=== PATIENT | female | born 1950 | race Caucasian/White ===

== ENCOUNTER → 2018-02-07 10:43 | Outpatient (CLI) | payer MEDICARE, BC, SELFPAY ==
--- NOTE | 2018-02-07 10:47 | US_ITS ---
STUDY: ULTRASOUND TRANSVAGINAL CLINICAL: Female, 67 years old. Postmenopausal bleeding TECHNIQUE: Transvaginal COMPARISON: None. FINDINGS: Normal uterine size measuring 5.3 x 2 x 2.4 cm in maximal craniocaudal dimension. There are no myometrial masses. Endometrium is not clearly identified. Pessary device is noted Nonvisualized ovaries. No adnexal masses. Polycystic ovary disease: No. IMPRESSION: Grossly unremarkable uterus. Nonvisualized endometrium. Pessary device is noted. Nonvisualized ovaries. Electronically Signed: Venancio Singh DO at 9:10 EDT Tel , Service support , STUDY: ULTRASOUND OF THE FEMALE PELVIS - COMPLETE REASON FOR EXAM: Female, 67 years old. Postmenopausal bleeding LMP: Unknown. TECHNIQUE: Transabdominal TECHNICAL QUALITY: Limited. Study is limited by bowel gas and by artifact from a vaginal pessary. COMPARISON: Transvaginal ultrasound, same date FINDINGS: The uterus is anteverted and is in a midline position. The uterus measures 6.7 x 3.3 x 2.6 cm. Normal uterine cervix. The endometrium measures 2.7 mm in thickness, and is hyperechoic. There is no demonstrated endometrial mass. There is no demonstrated myometrial mass. I.U.D. - The patient does not have an I.U.D. The right ovary is visualized. The right ovary measures 2 x 1.5 x 1.7 cm. There is no right ovarian cyst or ovarian mass. There is no visualized right adnexal mass or complex lesion. There is normal arterial and normal venous vascularity. The left ovary is non-visualized. There is no fluid in the cul-de-sac. The pre void volume of the bladder was 225 ml. Polycystic ovary disease: No. US/Pelvic (Non ) IMPRESSION: Study is limited by bowel gas and by the presence of a vaginal pessary. Unremarkable uterus and right ovary. No endometrial thickening. Electronically Signed: Martin Marcus DO at 15:14 EDT Tel , Service support ,
--- NOTE | 2018-02-07 11:51 | US_ITS ---
STUDY: ULTRASOUND TRANSVAGINAL CLINICAL: Female, 67 years old. Postmenopausal bleeding TECHNIQUE: Transvaginal COMPARISON: None. FINDINGS: Normal uterine size measuring 5.3 x 2 x 2.4 cm in maximal craniocaudal dimension. There are no myometrial masses. Endometrium is not clearly identified. Pessary device is noted Nonvisualized ovaries. No adnexal masses. Polycystic ovary disease: No. IMPRESSION: Grossly unremarkable uterus. Nonvisualized endometrium. Pessary device is noted. Nonvisualized ovaries. Electronically Signed: Venancio Singh DO at 9:10 EDT Tel , Service support , STUDY: ULTRASOUND OF THE FEMALE PELVIS - COMPLETE REASON FOR EXAM: Female, 67 years old. Postmenopausal bleeding LMP: Unknown. TECHNIQUE: Transabdominal TECHNICAL QUALITY: Limited. Study is limited by bowel gas and by artifact from a vaginal pessary. COMPARISON: Transvaginal ultrasound, same date FINDINGS: The uterus is anteverted and is in a midline position. The uterus measures 6.7 x 3.3 x 2.6 cm. Normal uterine cervix. The endometrium measures 2.7 mm in thickness, and is hyperechoic. There is no demonstrated endometrial mass. There is no demonstrated myometrial mass. I.U.D. - The patient does not have an I.U.D. The right ovary is visualized. The right ovary measures 2 x 1.5 x 1.7 cm. There is no right ovarian cyst or ovarian mass. There is no visualized right adnexal mass or complex lesion. There is normal arterial and normal venous vascularity. The left ovary is non-visualized. There is no fluid in the cul-de-sac. The pre void volume of the bladder was 225 ml. Polycystic ovary disease: No. US/Transvaginal Non- IMPRESSION: Study is limited by bowel gas and by the presence of a vaginal pessary. Unremarkable uterus and right ovary. No endometrial thickening. Electronically Signed: Martin Marcus DO at 15:14 EDT Tel , Service support ,
[2018-02-14 11:59] LABS: HPV Reflexed? NOT INDICATED
== END ==
LOC: US 10:46 → LABSPEC 11:00
PROVIDERS: Visit Provider Obstetrics & Gynecology
DX: Z12.4 Encounter for screening for malignant neoplasm of cervix (principal); N95.0 Postmenopausal bleeding
CPT/HCPCS: 76830; 76856; 88175; G0145

== ENCOUNTER → 2018-04-04 09:46 | Outpatient (CLI) | payer MEDICARE, BC, SELFPAY ==
--- NOTE | 2018-04-04 09:47 | BI_ITS ---
MAMMOGRAPHY - BILATERAL SCREENING REASON FOR EXAM: Female, 67 years old. Routine annual screening examination. PERTINENT HISTORY: Mother with breast cancer. TECHNIQUE: Digital bilateral breast daniel (3D mammographic acquisition) in the CC and MLO projections. 2-D mediolateral oblique (MLO) and craniocaudad (CC) views of both breasts were obtained. CAD: Full Field Digital Mammography with Computer Added Detection was performed. COMPARISON: Comparison is made with prior study dated January 11, 2016 and December 23, 2014. FINDINGS: Breast Composition: The breasts are heterogeneously dense, which may obscure small masses. There are no dominant masses or suspicious calcifications. No other significant abnormalities are identified. There has been no significant change since the prior study. BI/SCREENING MAMM (CAD), BILAT IMPRESSION: Stable bilateral screening mammogram. Yearly follow-up mammogram recommended. (A) ASSESSMENT CATEGORY: BIRADS Category 1: Negative. A letter regarding these results will be sent to the patient by the facility within 30 days. Approximately 10% of breast cancers are not detected by mammography. A normal mammogram should not delay biopsy of a clinically suspicious abnormality. [id number] Electronically Signed: Shiraz Morales MD at 13:03 EDT Tel [phone], Service support ,
== END ==
PROVIDERS: Family Provider Obstetrics & Gynecology; PCP Obstetrics & Gynecology; Visit Provider Obstetrics & Gynecology
DX: Z12.31 Encounter for screening mammogram for malignant neoplasm of breast (principal)
CPT/HCPCS: 77063; 77067

== ENCOUNTER → 2018-06-06 11:27 | Outpatient (CLI) | payer MEDICARE, BC, SELFPAY ==
[2018-06-14 15:57] LABS: HPV HC, High Risk Negative (Negative); HPV Reflexed? YES, CHARGE PATIENT
== END ==
PROVIDERS: Visit Provider Obstetrics & Gynecology
DX: Z12.4 Encounter for screening for malignant neoplasm of cervix (principal)
CPT/HCPCS: 87624; 88175; G0145

== ENCOUNTER → 2019-04-17 16:12 | Outpatient (CLI) | payer MEDICARE, BC, SELFPAY ==
--- NOTE | 2019-04-17 16:18 | BI_ITS ---
MAMMOGRAPHY - BILATERAL SCREENING REASON FOR EXAM: Female, 69 years old. Routine annual screening examination. PERTINENT HISTORY: Mother with breast cancer. TECHNIQUE: Digital bilateral breast daniel (3D mammographic acquisition) in the CC and MLO projections. 2-D mediolateral oblique (MLO) and craniocaudad (CC) views of both breasts were obtained. CAD: Full Field Digital Mammography with Computer Added Detection was performed. COMPARISON: Comparison is made with prior study dated April 04, 2018 and January 11, 2016. FINDINGS: Breast Composition: The breasts are heterogeneously dense, which may obscure small masses. There are no dominant masses or suspicious calcifications. No other significant abnormalities are identified. There has been no significant change since the prior study. BI/SCREENING MAMM (CAD), BILAT IMPRESSION: Stable bilateral screening mammogram. Yearly follow-up mammogram recommended. (A) ASSESSMENT CATEGORY: BIRADS Category 1: Negative. A letter regarding these results will be sent to the patient by the facility within 30 days. Approximately 10% of breast cancers are not detected by mammography. A normal mammogram should not delay biopsy of a clinically suspicious abnormality. [id number] Electronically Signed: Shiraz Morales, at 8:12 EDT , Service support ,
== END ==
PROVIDERS: Family Provider Obstetrics & Gynecology; PCP Obstetrics & Gynecology; Referring Provider Obstetrics & Gynecology; Visit Provider Obstetrics & Gynecology
DX: Z12.31 Encounter for screening mammogram for malignant neoplasm of breast (principal); Z80.3 Family history of malignant neoplasm of breast
CPT/HCPCS: 77063; 77067

== ENCOUNTER 2019-07-30 10:11 | Day surgery (SDC) | payer MEDICARE, BC, SELFPAY ==
--- NOTE | 2019-07-27 19:25 | HP.PCM_ITS ---
History and Physical Date of Admission: 07/30/19 HISTORY OF PRESENT ILLNESS: Skylar Keith, a 69 year old female 2 0 0 0 2, presented for: -- GynProblem-Estab Pt -- Skylar is here for evaluation of pessary that is retained. She has daily spotting and bleeding now. No longer able to have IC. Dr Pereira has been unable to remove this. She is currently using coconut oil and douching several times per week. She is here to have removal attempted again. LMT -- PMB which began Jun 2017. Skylar claims it started gradual and has been present 3-4 months. It occurs intermittently. It is located in the vaginal and is non-radiating. Skylar characterizes the quality of the PMB as spotting. S everity is worsening. An associated sign and symptom is changes with pessary. Additional comment: Patient states that spotting started after IC and then has increased to 3-4 x per month. As above. Here for attempted removal of donut pessary placed years ago to reduce prolapse. Unable to remove pessary. Some spotting associated with continued presence. She is using coconut oil to condition skin. Not painful. EB ALLERGIES: NKDA MEDICATIONS HISTORY: Current medications prescribed by our practice are: 1. Estrace 0.01% (0.1 mg/gram) vaginal cream, one half gram vaginally twice weekly for 6 mos Patient is also takin. Calcium 600 600 mg (1,500 mg) tablet, 1-2 daily 2. Vitamin D3 2,000 unit tablet, 1-2 daily 3. multivitamin tablet REVIEW OF SYSTEMS: GENERAL - Denies fever, or chills SKIN - Denies skin changes EYES - wears eye glasses EARS - Denies difficulty hearing NOSE - Denies nasal congestion or bleeding MOUTH - Denies sore throat or difficulty swallowing NECK - Denies pain or swelling RESPIRATORY - Denies shortness of breath or wheezing CARDIOVASCULAR - Denies palpitations or chest pain GASTROINTESTINAL - Denies nausea, vomiting, diarrhea, constipation GENITOURINARY - vaginal bleeding for years MUSCULOSKELETAL - Denies joint or muscle pain NEUROLOGICAL - Denies localized numbness or weakness PSYCHIATRIC - Denies depression or anxiety ENDOCRINE - Denies heat or cold intolerance, weight loss or gain HEMATO-IMMUNOLOGIC - Denies excessive bleeding with cuts PAST HISTORY: Breast/Ovarian/Colon Cancers - Mother had Breast Cancer approximately age 60-70 Infections - Chicken Pox, MONO, Measles, Mumps Illnesses - no serious past illnesses Accidents - Broken Arm '97 History of Abnormal PAPS - Denies Hospitalizations - see surgery SURGICAL HISTORY: 1. 11/20/1961 Bakers cyst on RT knee 2. Rt arm surgery after fx and removal MENSTRUAL HISTORY: LMP Known?- postmenopausal, Age Onset Menarche - 18 PAST PREGNANCIES: Total Pregnancies - 2; Full Term Pregnancies - 2; Premature - 0; Abortions, Induced - 0; Abortions, Spontaneous - 0; Ectopics - 0; Multiple Births - 0; Living Children - 2 FAMILY HISTORY (OLD): Mother: Breast CA, Intestinal CA and DM II. Father: Esophageal CA. FAMILY HISTORY: Father - FH: Cancer of the esophagus; Mother - Cancer; Mother - FH: Diabetes mellitus type 2; SOCIAL HISTORY: Alcohol Use - 1-2 glasses per day Smoking - denies smoking Diet - balanced Diet Lifestyle - moderate stress lifestyle and Exercise - regular Seat Belt Use - always Employer - Self employed Job Description - [employer] Illicit Drug Use - denies use of street drugs Sexual Activity - Residence - owns a home Hours Worked - prn Spouse-Sig Other Name - Corey Keith Spouse-Sig Other Occupation - Retired Children Name(s) - Mariangel Minaya Control - postmenopausal PHYSICAL EXAMINATION BP- 140/80 Sitting, Right arm, regular cuff Weight- 139.00 lbs Height- 67.00 inch BMI:21.82 CONSTITUTIONAL - NAD, well nourished, and well developed HEENT - Normocephalic, PERRLA, EOMI NECK - no nuchal rigidity EXTREMITIES - No edema or calf tenderness NEUROLOGICAL - Cranial nerves II-XII grossly intact PSYCHIATRIC - A and O to time, place, person, mood and affect PELVIC - atrophy noted at introitus. donut pessary in place, moves with exam, no blood noted. Unable to remove. DETAILED PELVIC EXAM External Genital Vagina - non-tender without lesions Urethra/Urethral Meatus - non-tender Bladder - non-tender Vagina - donut pessary in place, unable to remove. Cervix - without cervical motion tenderness and has normal size and features without evident lesions Pap - deferred ASSESSMENT: 1. Foreign Body In Vulva And Vagina PLAN BY DIAGNOSIS: 1. Foreign Body In Vulva And Vagina Retained donut pessary. Unable to remove since insertion Pessary mobile, not embedded. No blood noted on exam today. Reviewed R,B,A of pessary removal in Operating room under IV sedation. All questions answered to patient's satisfaction. Plan for pessary removal in OR under sedation as scheduled. The visit was approximately 20 minutes in length with most of the time spent in discussion and counseling.
[2019-07-30 10:37] LABS: Hematocrit 41.2 % (37-47); Mean Corpuscular Volume 94.3 fL (81-99); Mean Platelet Vol. 9.8 fl (6.2-12.0); Platelet Count 278 K/mm3 (150-450); RBC Distribution Width CV 12.5 % (11.6-14.6); RBC Distribution Width SD 43.5 fl (35.1-43.9); Red Blood Count 4.37 M/mm3 (4.2-5.4); White Blood Count 6.1 K/mm3 (4.4-11.0)
[2019-07-30 10:39] VITALS: BP 133/68; PULSE 60; RESP 16; TEMP 36.8; O2SAT 100; BMI 20.9
[2019-07-30] MEDS: Lactated Ringers 1,000 ML 150 ML IV (10:47)
--- NOTE | 2019-07-30 12:02 | DCINST_ITS ---
You will use the following diet at home:: No restrictions Discharge Activity: Return to Normal Activity - Rest today, on day of surgery. Resume all activity as tolerated on 07/31/19 May resume sexual activity in: No Restrictions Weight Bearing Status: Weight bearing as tolerated Call your doctor if you observe: Fever of 101 or Higher, Using more than one pad per hour, Uncontrolled pain Additional Instructions: Take Tylenol if needed for mild pain. Allergies/Adverse Reactions: Allergies No Known Allergies Allergy (Verified 07/30/19 10:22) Medications to take at Discharge Calcium Carbonate/Vitamin D3 [Calcium 600 + Vit D Tablet] 1 ea PO DAILY 07/23/19 Multivitamin [Multivitamins] 1 ea PO DAILY 07/23/19 Primary Care Physician: Amanda Cornejo MD [Primary Care Provider] - Test Results: Test results from this visit will be discussed in further detail at your follow- up appointment, if applicable. Please Follow Up With: Meli Boogie MD - [phone] When: Return to office as needed if prolapse is worsening without the pessary. Proposed Discharge Date: 07/30/19
[2019-07-30 12:29] VITALS: BP 133/68; BP 94/60; PULSE 49; RESP 16; TEMP 35.9; O2SAT 98
[2019-07-30 12:35] VITALS: BP 133/68; BP 94/60; PULSE 43; RESP 14; O2SAT 97
[2019-07-30 12:40] VITALS: BP 133/68; BP 95/67; PULSE 58; RESP 14; O2SAT 98
[2019-07-30 12:46] VITALS: BP 105/59; BP 133/68; PULSE 57; RESP 14; TEMP 35.8; O2SAT 98
[2019-07-30 13:13] VITALS: BP 133/68
--- NOTE | 2019-07-31 07:59 | PCM.OPRPT ---
Report of Operation Date of Procedure: 07/30/19 Pre-Operative Diagnosis: retained pessary Post-Operative Diagnosis: Same Surgery/Procedure Performed:: Exam under anesthesia, removal of retained donut pessary Description of Surgical Findings:: Donut pessary (in place since insertion in 2012). Type of Anesthesia:: IV Sedation Anesthesiologist: Lucille Torres CRNA Specimen's removed: Donut pessary removed, discarded Drains: none Estimated Blood Loss (mL): 10 Fluids Replaced: LR Description of Procedure: After the risks, benefits, alternatives of the procedure were reviewed with the patient, informed consent was obtained. The patient was taken to the operating room with an IV running and placed in dorsal supine position on the operating table. She was given MAC IV sedation and repositioned to the dorsal lithotomy position and prepped and draped in the usual sterile fashion. An exam under anesthesia was performed and an attempt made to grasp and remove the donut pessary intact. This could not be accomplished. The Donut pessary was grasped with a single toothed tenaculum and brought to the introitus and a Kendrick scissors was used to divide a segment of the donut. With the ring of the donut disrupted the pessary was then removed otherwise intact through the introitus, bringing the pessary out through the introitus from one end of the divided segment to the trailing end. This point the procedure was terminated . A moistened sponge stick was used to remove any remaining fluid and blood from the upper vagina and cervix. Excellent hemostasis was noted. KY jelly was applied to the abraded skin at the introitus. The patient was returned to dorsal supine position and awakened from IV sedation and then transferred to her recovery room bed in stable condition after tolerating the procedure well. Sponge, lap, needle, and instrument counts were correct x2. Medications given intraoperatively included Toradol IV. For complete listing the medications given intraoperatively, see the anesthesia record. - Complications None. - Admit VTE Documentation VTE Present on Admission: No VTE Mechan Device Prophylaxis: SCD's VTE Pharm Prophylaxis ordered?: No
== END 2019-07-30 13:20 | disposition home or self-care (01) ==
LOC: SDC 10:12 → AC 10:14
PROVIDERS: Family Provider Internal Medicine; PCP Internal Medicine; Referring Provider Obstetrics & Gynecology; Visit Provider Obstetrics & Gynecology
PROC: (CPT 58120; principal; 2019-07-30 11:50)
DX: T19.2XXA Foreign body in vulva and vagina, initial encounter (principal); X58.XXXA Exposure to other specified factors, initial encounter
CPT/HCPCS: 00940; 57415; 85027; J7120; J2405

== ENCOUNTER → 2019-10-28 13:30 | Outpatient (CLI) | payer MEDICARE, BC, SELFPAY ==
[2019-11-01 17:07] LABS: HPV HC, High Risk Negative (Negative); HPV Reflexed? YES, CHARGE PATIENT
== END ==
PROVIDERS: Visit Provider Obstetrics & Gynecology
DX: Z12.4 Encounter for screening for malignant neoplasm of cervix (principal)
CPT/HCPCS: 87624; 88175; G0145

== ENCOUNTER → 2025-09-24 | Outpatient (CLI) | payer MEDICARE, BC, SELFPAY ==
--- NOTE | 2025-09-24 12:58 | NEURO_ITS ---
NCS and/or EMG Patient Report
--- NOTE | 2025-09-24 12:58 | NEURO ---
NCS and/or EMG Patient Report Ordering Doctor: Nancy Liu DATE OF SERVICE: 09/24/25 Skylar presents with complaints of numbness and tingling in the right hand, primarily in digits 1 through 4. Electrodiagnostic findings: Right median motor nerve demonstrates prolonged distal latency with normal amplitude and reduced conduction velocity. Normal right ulnar motor response. Borderline prolonged right median F?wave. Prolonged right median sensory latency at the wrist. Needle EMG testing was performed in the right upper limb. All muscles tested showed no evidence of denervation with normal motor unit action potentials. Electrodiagnostic impression: This is an abnormal study in the right upper limb. 1. Electrodiagnostic findings suggestive of right-sided median mononeuropathy. This consistent with a mild right carpal tunnel syndrome Multi Select Codes Neurology Neurology Interp Codes: 50035-27 Musc test done w/n test comp (interp) and 25748-90 Nrv cndj tst 5-6 studies (interp)
== END | disposition home or self-care (01) ==
LOC: PSN 09:56
PROVIDERS: PCP Internal Medicine; Referring Provider Physician Assistant; Visit Provider Physician Assistant
DX: G56.01 Carpal tunnel syndrome, right upper limb (principal)
CPT/HCPCS: 95886; 95909